=== PATIENT | male | born 1980 | race Caucasian/White ===

== ENCOUNTER 2019-02-24 13:17 | Emergency (ER) | payer SELFPAY ==
[~2019-02-24] VITALS: Ht 162.6 cm; Wt 80.8 kg
[~2019-02-24 13:17] MED LIST: ACET500C5 PO; CEPH-443 PO
[2019-02-24 13:18] VITALS: BP 131/80; PULSE 74; RESP 16; Ht 162.6 cm; Wt 80.8 kg
[2019-02-24] MEDS ORDERED: DIPHTH/TET/ACEL PERTUSS (ADULT) 0.5 ML VIAL IM* ONE (14:00)
[2019-02-24] MEDS ORDERED: LIDOCAINE 1% (MDV) 20 ML INJ SC ONE (14:00)
== END 2019-02-24 15:38 | disposition home or self-care (01) ==
LOC: FTE 13:17
DX: S61.211A Laceration without foreign body of left index finger without damage to nail, initial encounter (principal); E11.9 Type 2 diabetes mellitus without complications; W26.0XXA Contact with knife, initial encounter; Y92.9 Unspecified place or not applicable
CPT/HCPCS: 90715

== ENCOUNTER 2019-02-26 18:19 | Emergency (ER) | payer SELFPAY ==
[~2019-02-26] VITALS: Ht 165.1 cm; Wt 80.3 kg
[2019-02-26 18:32] VITALS: BP 129/81; PULSE 70; RESP 18; Ht 165.1 cm; Wt 80.3 kg
== END 2019-02-26 20:03 | disposition home or self-care (01) ==
LOC: FTE 18:19
DX: Z48.01 Encounter for change or removal of surgical wound dressing (principal); E11.9 Type 2 diabetes mellitus without complications
CPT/HCPCS: 99281